=== PATIENT | female | born 1965 | race Two or more races ===

== ENCOUNTER 2021-07-19 02:50 | Inpatient (IN) | payer MEDICAID, OTHER, SELFPAY ==
[~2021-07-19] VITALS: Ht 160 cm; Wt 75.0 kg
[2021-07-19] MEDS ORDERED: FAMOTIDINE (10MG/ML) 2ML VL IV ONE (04:30)
[2021-07-19] MEDS ORDERED: ONDANSETRON HCL 4 MG/2 ML VIAL IV ONE (04:30)
[2021-07-19 04:31] LABS: Urine Amorphous Crystal FEW /hpf (None Seen); Urine Bacteria NONE SEEN /hpf (None Seen); Urine Blood TRACE /uL (Negative); Urine Specific Gravity 1.012 (1.001-1.035); Urine WBC 4 /hpf (0 - 5)
[2021-07-19 07:24] LABS: Basophils # (auto) 0 10 ^3/uL (0-0.2); Basophils % (auto) 0.4 % (0.0-2.0); Eosinophils # (auto) 0.1 10 ^3/uL (0-0.8); Eosinophils % (auto) 1.2 % (0.0-7.0); Hematocrit 40.8 % (36.0-46.0); Hemoglobin 14.1 g/dL (12.2-16.2); Lymphocytes # (auto) 0.8 10 ^3/uL (0.4-5.4); Lymphocytes % (auto) 11.4 % (10.0-50.0); Mean Corpuscular Hemoglobin 29.5 pg (28.0-32.0); Mean Corpuscular Hgb Conc. 34.4 g/dL (32.0-36.0); Mean Corpuscular Volume 85.5 fL (80.0-100.0); Monocytes # (auto) 0.3 10 ^3/uL (0-1.3); Neutrophils # (auto) 5.5 10 ^3/uL (1.6-8.6); Nucleated Red Blood Cells % 0.1 %; Red Blood Cells 4.77 10^6/uL (4.0-5.20); Red Cell Distribution Width 13.2 % (11.8-14.3); White Blood Cell 6.7 10^3/uL (4.4-10.8)
[2021-07-19 07:30] LABS: Calcium 9.2 mg/dL (8.5-10.1); Magnesium 2.5 mg/dL (1.6-2.6); Potassium 3.8 mmol/L (3.5-5.1)
[2021-07-19 07:32] LABS: BUN/Creatinine Ratio 15.9
[2021-07-19 07:34] LABS: Bilirubin, Total 0.9 mg/dL (0.2-1.0); Total Protein 8.5 g/dL (6.4-8.2)
[2021-07-19 07:37] LABS: Lactic Acid w/Reflex 2.8 mmol/L (0.4-2.0)
[2021-07-19] MEDS ORDERED: SODIUM CHLORIDE 0.9% 1,000 ML IV ONE (10:45)
[2021-07-19] MEDS ORDERED: PANTOPRAZOLE 40 MG/10 ML VIAL INJ IV ONE (10:45)
[2021-07-19] MEDS ORDERED: SODIUM CHLORIDE 0.9% 1,000 ML IV SCH (10:45)
[2021-07-19] MEDS ORDERED: cefTRIAXone 1GM/50ML D5W 50 ML IV ONE (10:45)
[2021-07-19] MEDS ORDERED: MORPHINE SULFATE INJECTION 2 MG/ML SYRG IV PRN ×2 (10:45→12:30)
[2021-07-19] MEDS ORDERED: metroNIDAZOLE 500MG/100ML 100 ML IV ONE (10:45)
[2021-07-19] MEDS ORDERED: NITROGLYCERIN 0.4 MG SL TAB SL PRN ×2 (10:45→12:30)
[2021-07-19] MEDS ORDERED: ACETAMINOPHEN 325 MG TAB PO PRN (12:30)
[2021-07-19] MEDS ORDERED: TEMAZEPAM 15 MG CAP PO PRN (12:30)
[2021-07-19] MEDS ORDERED: DOCUSATE SOD 100 MG CAP PO PRN (12:30)
[2021-07-19] MEDS ORDERED: METOCLOPRAMIDE HCL 5MG/ml INJ 2ml VIAL IV PRN (12:30)
[2021-07-19] MEDS ORDERED: ALUM & MAG HYDROX-SIMETH LIQ(MAALOX) 30 ML PO PRN (12:30)
[2021-07-19] MEDS ORDERED: metroNIDAZOLE 500MG/100ML 100 ML IV SCH (14:00)
[2021-07-19 14:33] LABS: Hepatitis A Ab IgM Negative; Hepatitis B Core IgM Negative; Hepatitis C Antibody Negative (Negative)
[2021-07-19 15:52] LABS: Cholesterol 238 mg/dL (< 200); HDL Cholesterol 59 mg/dL (40-59); LDL Cholesterol 151 mg/dL (< 100); Triglycerides 131 mg/dL (< 150)
[2021-07-19 19:27] LABS: Amphetamine Screen, Urine NEGATIVE (NEGATIVE); Barbiturate Scree,Urine NEGATIVE (NEGATIVE); Benzodiazephine Screen, Urine NEGATIVE (NEGATIVE); Cannabinoid Screen, Urine NEGATIVE (NEGATIVE); Cocaine Screen, Urine NEGATIVE (NEGATIVE); Opiate Scree,Urine NEGATIVE (NEGATIVE); Phencyclidine Screen, Urine NEGATIVE (NEGATIVE)
[2021-07-19] MEDS: D5W/SOD CHLO 0.9% 1,000 ML IV SCH (21:27)
[2021-07-19 23:18] VITALS: BP 129/63
[2021-07-19] MEDS ORDERED: PNEUMOCOCCAL VACC POLYS 25 MCG/0.5 ML VIAL IM ONE (23:45)
[2021-07-19] MEDS ORDERED: INFLUENZA QUAD 2021-2022 0.5 ML SYRG IM ONE (23:45)
[2021-07-20] MEDS: metroNIDAZOLE 500MG/100ML 100 ML IV SCH ×4 (00:10→23:01)
[2021-07-20 04:30] VITALS: BP 100/61
[2021-07-20 05:43] LABS: Basophils # (auto) 0 10 ^3/uL (0-0.2); Basophils % (auto) 0.8 % (0.0-2.0); Eosinophils # (auto) 0.2 10 ^3/uL (0-0.8); Eosinophils % (auto) 3.7 % (0.0-7.0); Hematocrit 36.6 % (36.0-46.0); Hemoglobin 12.5 g/dL (12.2-16.2); Lymphocytes # (auto) 0.5 10 ^3/uL (0.4-5.4); Lymphocytes % (auto) 12.9 % (10.0-50.0); Mean Corpuscular Hemoglobin 29.2 pg (28.0-32.0); Mean Corpuscular Hgb Conc. 34.1 g/dL (32.0-36.0); Mean Corpuscular Volume 85.7 fL (80.0-100.0); Monocytes # (auto) 0.3 10 ^3/uL (0-1.3); Neutrophils % (auto) 74.6 % (37.0-80.0); Nucleated Red Blood Cells % 0.1 %; Red Blood Cells 4.27 10^6/uL (4.0-5.20); Red Cell Distribution Width 13.3 % (11.8-14.3); White Blood Cell 4.1 10^3/uL (4.4-10.8)
[2021-07-20 05:50] LABS: INR 1.05 (0.9-1.15); Partial Thromboplastin Time 25.7 sec (23.6-33.0)
[2021-07-20 05:51] LABS: Albumin 3.5 g/dL (3.4-5.0); Potassium 3.6 mmol/L (3.5-5.1)
[2021-07-20 06:00] LABS: BUN/Creatinine Ratio 19.7; Bilirubin, Total 0.8 mg/dL (0.2-1.0); Calcium 8.3 mg/dL (8.5-10.1); Magnesium 3.3 mg/dL (1.6-2.6); Phosphorus 3.8 mg/dL (2.5-4.90)
[2021-07-20 08:00] VITALS: BP 135/71
[2021-07-20] MEDS: D5W/SOD CHLO 0.9% 1,000 ML IV SCH ×2 (08:45→23:00)
[2021-07-20 08:50] VITALS: BP 113/54
[2021-07-20 08:59] VITALS: BP 142/76
[2021-07-20] MEDS: cefTRIAXone 1GM/50ML D5W 50 ML IV SCH (09:00)
[2021-07-20] MEDS: ENOXAPARIN SOD 40 MG/0.4 ML SYRINGE SC SCH (09:57)
[2021-07-20] MEDS: PANTOPRAZOLE 40 MG/10 ML VIAL INJ IV SCH (09:57)
[2021-07-20] MEDS ORDERED: PANTOPRAZOLE 40 MG/10 ML VIAL INJ IV SCH (10:00)
[2021-07-20] MEDS ORDERED: LIDOCAINE 2%HCL (LOCAL ANESTH.) INJ 20ML MDV ONE (12:47)
[2021-07-20] MEDS ORDERED: fentaNYL CITRATE 100 MCG/2 ML VL ONE (12:47)
[2021-07-20] MEDS ORDERED: MIDAZOLAM HCL 2MG/2ML 2ml VIAL (1mg/ml) ONE ×2 (12:47→13:45)
[2021-07-20] MEDS ORDERED: HYDROmorphone HCL 2 MG/ML VL ONE (13:40)
[2021-07-20] MEDS ORDERED: KETOROLAC TROMETH 30 MG/ML 1ML VIAL ONE (13:51)
[2021-07-20] MEDS ORDERED: KETOROLAC TROMETH 60MG/2ML VIAL IM ONE (14:00)
[2021-07-20] MEDS ORDERED: IODIXANOL 320MG/ML 100ML BTL IV ONE ×2 (14:24→14:46)
[2021-07-20] MEDS: ONDANSETRON HCL 4 MG/2 ML VIAL IV PRN ×2 (19:37→23:01)
[2021-07-20 20:00] VITALS: BP 135/71
[2021-07-20 22:00] VITALS: BP 128/62
[2021-07-21] MEDS: MORPHINE SULFATE INJECTION 2 MG/ML SYRG IV PRN ×2 (01:54→18:00)
[2021-07-21 05:00] VITALS: BP 143/70
[2021-07-21 05:31] LABS: Calcium 8.6 mg/dL (8.5-10.1); Potassium 3.5 mmol/L (3.5-5.1)
[2021-07-21 05:34] LABS: Albumin 3.5 g/dL (3.4-5.0); BUN/Creatinine Ratio 19.4
[2021-07-21 05:43] LABS: Bilirubin, Total 1.1 mg/dL (0.2-1.0); Total Protein 7.5 g/dL (6.4-8.2)
[2021-07-21 08:00] VITALS: BP 137/73
[2021-07-21 09:00] VITALS: BP 137/73
[2021-07-21] MEDS: cefTRIAXone 1GM/50ML D5W 50 ML IV SCH (09:38)
[2021-07-21] MEDS: ENOXAPARIN SOD 40 MG/0.4 ML SYRINGE SC SCH (09:39)
[2021-07-21] MEDS: PANTOPRAZOLE 40 MG/10 ML VIAL INJ IV SCH (09:39)
[2021-07-21 13:30] VITALS: BP 135/72
[2021-07-21] MEDS: metroNIDAZOLE 500MG/100ML 100 ML IV SCH ×3 (13:41→22:40)
[2021-07-21] MEDS: HYDROcodone-ACET 5/325MG TAB PO PRN ×2 (15:51→22:47)
[2021-07-21 17:00] VITALS: BP 125/77
[2021-07-21 20:00] VITALS: BP 136/67
[2021-07-22 05:00] VITALS: BP 119/62
[2021-07-22] MEDS: metroNIDAZOLE 500MG/100ML 100 ML IV SCH ×2 (06:11→21:57)
[2021-07-22 06:30] LABS: Potassium 3.2 mmol/L (3.5-5.1)
[2021-07-22 06:49] LABS: Albumin 3.4 g/dL (3.4-5.0); Bilirubin, Direct 0.3 mg/dL (0-0.2); Bilirubin, Total 0.8 mg/dL (0.2-1.0); Magnesium 2.2 mg/dL (1.6-2.6); Total Protein 7.2 g/dL (6.4-8.2)
[2021-07-22 08:00] VITALS: BP 151/73
[2021-07-22] MEDS: cefTRIAXone 1GM/50ML D5W 50 ML IV SCH (09:00)
[2021-07-22] MEDS: PANTOPRAZOLE 40 MG/10 ML VIAL INJ IV SCH (10:00)
[2021-07-22] MEDS: CHOLECALCIFEROL (VITD3) 2,000 UNIT CAP/TAB PO SCH (10:00)
[2021-07-22] MEDS: ENOXAPARIN SOD 40 MG/0.4 ML SYRINGE SC SCH (10:00)
[2021-07-22 12:00] VITALS: BP 133/77
[2021-07-22] MEDS ORDERED: POTASSIUM EFFERVESENT TAB 25 MEQ PO ONE (13:30)
[2021-07-22 16:00] VITALS: BP 120/97
[2021-07-22 20:00] VITALS: BP 144/77
[2021-07-22 22:00] VITALS: BP 144/71
[2021-07-23] VITALS (9 sets, daily range): BP systolic 106–153; BP diastolic 65–79
[2021-07-23 05:38] LABS: INR 1.06 (0.9-1.15)
[2021-07-23 05:41] LABS: Potassium 3.2 mmol/L (3.5-5.1)
[2021-07-23 05:46] LABS: Albumin 3.4 g/dL (3.4-5.0); Bilirubin, Direct 0.3 mg/dL (0-0.2); Bilirubin, Total 0.9 mg/dL (0.2-1.0); Total Protein 7.3 g/dL (6.4-8.2)
[2021-07-23] MEDS: metroNIDAZOLE 500MG/100ML 100 ML IV SCH ×3 (06:12→22:00)
[2021-07-23] MEDS: cefTRIAXone 1GM/50ML D5W 50 ML IV SCH (09:00)
[2021-07-23] MEDS ORDERED: POVIDONE IODINE 10 % TOPICAL OINT 30GM TOP ONE (09:08)
[2021-07-23] MEDS ORDERED: BUPIVACAINE 0.5% MPF INJ 30ML SDV IJ ONE (09:08)
[2021-07-23] MEDS ORDERED: LIDOCAINE 1%-Mpf/Epinephrine 1:200,000 ONE (09:08)
[2021-07-23] MEDS ORDERED: ONDANSETRON HCL 4 MG/2 ML VIAL ONE (09:22)
[2021-07-23] MEDS ORDERED: PROPOFOL 10 MG/ML 20 ML IV ONE (09:22)
[2021-07-23] MEDS ORDERED: MIDAZOLAM HCL 2MG/2ML 2ml VIAL (1mg/ml) ONE (09:22)
[2021-07-23] MEDS ORDERED: SODIUM CHLORIDE LOCK 10 ML ONE (09:22)
[2021-07-23] MEDS ORDERED: GLYCOPYRROLATE 0.2 MG/ML 1ML VIAL ONE (09:22)
[2021-07-23] MEDS ORDERED: ROCURONIUM 10MG/ML 10ML VIAL IV ONE (09:22)
[2021-07-23] MEDS ORDERED: fentaNYL CITRATE 5 ML ONE (09:22)
[2021-07-23] MEDS ORDERED: NEOSTIGMINE 1 MG/ML INJ (10mg/10ML VIAL) ONE (09:22)
[2021-07-23] MEDS ORDERED: ceFAZolin 1GM/50ML 100 ML IV ONE (09:22)
[2021-07-23] MEDS ORDERED: BUPIVACAINE HCL 50 ML ONE (09:24)
[2021-07-23] MEDS: PANTOPRAZOLE 40 MG/10 ML VIAL INJ IV SCH (10:00)
[2021-07-23] MEDS: ENOXAPARIN SOD 40 MG/0.4 ML SYRINGE SC SCH (10:00)
[2021-07-23] MEDS: CHOLECALCIFEROL (VITD3) 2,000 UNIT CAP/TAB PO SCH (10:00)
[2021-07-23] MEDS ORDERED: D5W/SOD CHL 0.45%/KCL 20MEQ 1,000 ML IV SCH (10:45)
[2021-07-23] MEDS: ONDANSETRON HCL 4 MG/2 ML VIAL IV PRN (13:01)
[2021-07-23] MEDS: MORPHINE SULFATE INJECTION 2 MG/ML SYRG IV PRN (13:01)
[2021-07-23] MEDS: HYDROcodone-ACET 5/325MG TAB PO PRN (20:57)
[2021-07-24] MEDS: metroNIDAZOLE 500MG/100ML 100 ML IV SCH ×3 (05:46→21:37)
[2021-07-24] MEDS: HYDROcodone-ACET 5/325MG TAB PO PRN (05:59)
[2021-07-24 07:01] LABS: Amylase 65 U/L (25-115)
[2021-07-24 07:03] LABS: Alkaline Phosphatase 239 U/L (45-117)
[2021-07-24 09:00] VITALS: BP 131/67
[2021-07-24] MEDS: cefTRIAXone 1GM/50ML D5W 50 ML IV SCH (09:52)
[2021-07-24] MEDS: PANTOPRAZOLE 40 MG/10 ML VIAL INJ IV SCH (09:53)
[2021-07-24] MEDS: ENOXAPARIN SOD 40 MG/0.4 ML SYRINGE SC SCH (09:53)
[2021-07-24] MEDS: CHOLECALCIFEROL (VITD3) 2,000 UNIT CAP/TAB PO SCH (09:53)
[2021-07-24 10:57] LABS: Potassium 3.4 mmol/L (3.5-5.1)
[2021-07-24 11:08] LABS: Albumin 3.3 g/dL (3.4-5.0); BUN/Creatinine Ratio 13.8; Bilirubin, Total 1.1 mg/dL (0.2-1.0); Calcium 8.5 mg/dL (8.5-10.1); Total Protein 7.4 g/dL (6.4-8.2)
[2021-07-24] MEDS: D5W/SOD CHL 0.45%/KCL 20MEQ 1,000 ML IV SCH (12:15)
[2021-07-24] MEDS ORDERED: POTASSIUM EFFERVESENT TAB 25 MEQ PO ONE (12:15)
[2021-07-24 13:00] VITALS: BP 113/70
[2021-07-24 17:00] VITALS: BP 114/70
[2021-07-24 17:51] VITALS: BP 114/70
[2021-07-24 20:00] VITALS: BP 125/76
[2021-07-24 22:00] VITALS: BP 125/76
[2021-07-25] MEDS: D5W/SOD CHL 0.45%/KCL 20MEQ 1,000 ML IV SCH (02:33)
[2021-07-25 05:46] VITALS: BP 125/76
[2021-07-25] MEDS: metroNIDAZOLE 500MG/100ML 100 ML IV SCH (05:58)
[2021-07-25 07:38] LABS: Albumin 3.2 g/dL (3.4-5.0); Bilirubin, Direct 0.2 mg/dL (0-0.2); Magnesium 2.3 mg/dL (1.6-2.6); Potassium 3.4 mmol/L (3.5-5.1)
[2021-07-25 07:41] LABS: Bilirubin, Total 0.5 mg/dL (0.2-1.0); Total Protein 7.3 g/dL (6.4-8.2)
[2021-07-25 07:53] LABS: Basophils # (auto) 0 10 ^3/uL (0-0.2); Basophils % (auto) 0.6 % (0.0-2.0); Eosinophils # (auto) 0.3 10 ^3/uL (0-0.8); Eosinophils % (auto) 5.4 % (0.0-7.0); Hematocrit 37.2 % (36.0-46.0); Hemoglobin 12.6 g/dL (12.2-16.2); Lymphocytes # (auto) 0.9 10 ^3/uL (0.4-5.4); Lymphocytes % (auto) 17.3 % (10.0-50.0); Mean Corpuscular Hemoglobin 29.1 pg (28.0-32.0); Mean Corpuscular Hgb Conc. 33.9 g/dL (32.0-36.0); Mean Corpuscular Volume 85.7 fL (80.0-100.0); Monocytes # (auto) 0.4 10 ^3/uL (0-1.3); Monocytes % (auto) 8.7 % (0.0-12.0); Neutrophils # (auto) 3.5 10 ^3/uL (1.6-8.6); Nucleated Red Blood Cells % 0.1 %; Red Blood Cells 4.34 10^6/uL (4.0-5.20); Red Cell Distribution Width 13.2 % (11.8-14.3); White Blood Cell 5.1 10^3/uL (4.4-10.8)
[2021-07-25 08:00] VITALS: BP 125/76
[2021-07-25 09:00] VITALS: BP 144/76
[2021-07-25] MEDS: PANTOPRAZOLE 40 MG/10 ML VIAL INJ IV SCH (10:00)
[2021-07-25] MEDS: CHOLECALCIFEROL (VITD3) 2,000 UNIT CAP/TAB PO SCH (10:00)
[2021-07-25] MEDS: ENOXAPARIN SOD 40 MG/0.4 ML SYRINGE SC SCH (10:00)
[2021-07-25] MEDS: cefTRIAXone 1GM/50ML D5W 50 ML IV SCH (11:58)
[2021-07-25 13:00] VITALS: BP 111/79
[2021-07-25] MEDS ORDERED: LEVO500T31 PO (14:12)
[2021-07-25] MEDS ORDERED: CHOL20007 PO (14:12)
[2021-07-25] MEDS ORDERED: METR500T PO (14:12)
[2021-07-25] MEDS ORDERED: POTASSIUM EFFERVESENT TAB 25 MEQ PO ONE (14:15)
== END 2021-07-25 16:50 | disposition home or self-care (01) | DRG 417 ==
LOC: ER 02:50 → OVERFLOW 10:38 → WEST WING 23:00
PROVIDERS: ADMIT Hospitalist; ATTEND Internal Medicine
PROC: BF12YZZ Fluoroscopy of Gallbladder using Other Contrast (ICD-10-PCS; principal; 2021-07-20)
PROC: 0F793ZZ Dilation of Common Bile Duct, Percutaneous Approach (ICD-10-PCS; 2021-07-20)
PROC: BF42ZZZ Ultrasonography of Gallbladder (ICD-10-PCS; 2021-07-20)
PROC: 0F943ZZ Drainage of Gallbladder, Percutaneous Approach (ICD-10-PCS; 2021-07-20)
PROC: 0FC93ZZ Extirpation of Matter from Common Bile Duct, Percutaneous Approach (ICD-10-PCS; 2021-07-20)
PROC: 0FT44ZZ Resection of Gallbladder, Percutaneous Endoscopic Approach (ICD-10-PCS; 2021-07-23)
DX: K81.0 Acute cholecystitis (principal); K83.1 Obstruction of bile duct; B17.9 Acute viral hepatitis, unspecified; N39.0 Urinary tract infection, site not specified; K75.81 Nonalcoholic steatohepatitis (NASH); E55.9 Vitamin D deficiency, unspecified; E66.01 Morbid (severe) obesity due to excess calories; Z68.29 Body mass index [BMI] 29.0-29.9, adult; B95.1 Streptococcus, group B, as the cause of diseases classified elsewhere; E78.5 Hyperlipidemia, unspecified; E87.6 Hypokalemia; Z20.822 Contact with and (suspected) exposure to COVID-19; Z23 Encounter for immunization
CPT/HCPCS: 36415; 71045; 74181; 76000; 76705; 76942; 78226; 80053; 80061; 80074; 80076; 80307; 81001; 82150; 82247; 82306; 83036; 83605; 83690; 83735; 83880; 84075; 84100; 84132; 84443; 84484; 85025; 85379; 85610; 85730; 86850; 86900; 86901; 87040; 87086; 87088; 87426; 93005; 96365; 96375; 99152; 99153; C9113; G0378; J0690; J0696; J1885; J2250; J2405; J2704; J3490; J7042; Q9967

== ENCOUNTER → 2021-08-03 | Outpatient (CLI) | payer SELFPAY ==
[~2021-08-03] MED LIST: CHOL20007 PO; LEVO500T31 PO; METR500T PO
[2021-08-03 09:50] LABS: Albumin 3.7 g/dL (3.4-5.0); Bilirubin, Direct 0.2 mg/dL (0-0.2)
[2021-08-03 09:53] LABS: Bilirubin, Total 0.6 mg/dL (0.2-1.0)
== END | disposition home or self-care (01) ==
LOC: LAB 08:53
DX: Z00.00 Encounter for general adult medical examination without abnormal findings (principal)
CPT/HCPCS: 36415; 80076